=== PATIENT | male | born 1965 | race Caucasian/White ===

== ENCOUNTER 2023-04-19 08:08 | Inpatient (IN) | payer BC ==
[2023-04-19] MEDS ORDERED: Sodium Chloride 0.9% 10 ML Syringe FLUSH PRN (08:22)
[2023-04-19] MEDS ORDERED: Insulin Regular, Human 100 Units/ML 3 ML Vial SUBCUT ONE ×2 (08:23→10:06)
[2023-04-19] MEDS ORDERED: 50% Dextrose in Water 50 ML Syringe IVPUSH PRN ×5 (08:23→15:12)
[2023-04-19] MEDS ORDERED: Glucagon,Human Recombinant 1 MG Vial IM PRN ×5 (08:23→15:12)
[2023-04-19] MEDS ORDERED: Sodium Chloride 0.9% 500 ML IV SCH (08:30)
[2023-04-19 08:43] LABS: BASOPHILS ABSOLUTE AUTO 0.03 K/uL (0.00-0.20); BASOPHILS PERCENT AUTO 0.5 % (0.0-2.0); EOSINOPHILS ABSOLUTE AUTO 0.21 K/uL (0.00-0.50); EOSINOPHILS PERCENT AUTO 3.8 % (0.0-5.0); HEMATOCRIT 44.3 % (39.0-49.0); HEMOGLOBIN 15.5 g/dL (13.1-16.8); LYMPHOCYTES PERCENT AUTO 19.9 % (10.0-50.0); MEAN CORPUSCULAR HEMOGLOBIN 30.4 pg (28.2-33.3); MEAN CORPUSCULAR VOLUME 86.9 fL (84.0-98.0); MONOCYTES PERCENT AUTO 9.1 % (2.0-14.0); NEUTROPHILS ABSOLUTE AUTO 3.68 K/uL (1.40-7.00); NEUTROPHILS PERCENT AUTO 66.7 % (45.0-80.0); PLATELET COUNT,PLT 123 K/uL (150-350); RED CELL DISTRIBUTION WIDTH 12.8 % (11.2-14.1); WHITE BLOOD CELL COUNT,WBC 5.5 K/uL (4.0-10.2)
[2023-04-19 08:57] LABS: HEMOGLOBIN A1C 13.5 % (4.3-5.7)
[2023-04-19 09:16] LABS: ALBUMIN 3.6 g/dL (3.4-5.0); BILIRUBIN TOTAL 0.7 mg/dL (0.2-1.0); CALCIUM 8.9 mg/dL (8.5-10.1); CREATININE 1.15 mg/dL (0.51-1.17); EST CRCL DRUG DOSING (CG) 79.66 mL/min; MAGNESIUM 1.8 mg/dL (1.8-2.4); POTASSIUM,K 4.4 mmol/L (3.5-5.1); PROTEIN TOTAL,TP 7.5 g/dL (6.4-8.2)
[2023-04-19 09:21] LABS: ANION GAP 17.4 meq/L (7-15)
[2023-04-19 10:06] LABS: APPEARANCE,URINE CLEAR; BILIRUBIN,URINE NEGATIVE (NEGATIVE); COLOR,URINE LIGHT YELLOW; GLUCOSE,URINE 500 mg/dL (NEGATIVE); KETONES,URINE 40 mg/dL (NEGATIVE); LEUKOCYTE ESTERASE,URINE NEGATIVE (NEGATIVE); NITRITE,URINE NEGATIVE (NEGATIVE); OCCULT BLOOD,URINE NEGATIVE (NEGATIVE); PH,URINE 5.5 (5.0-9.0); PROTEIN,URINE NEGATIVE (NEGATIVE); UROBILINOGEN,URINE 0.2 E.U./dL (0.2-1.0)
[2023-04-19] MEDS ORDERED: metFORMIN 500 MG Tab PO ONE (10:07)
[2023-04-19] MEDS: Insulin Regular, Human 100 Units/ML 3 ML Vial SUBCUT SCH ×2 (11:38→17:47)
[2023-04-19 13:33] LABS: CHOLESTEROL HDL 38 mg/dL (40-60); CHOLESTEROL TOTAL 255 mg/dL (100-200); LIPASE 94 U/L (16-77)
[2023-04-19 14:06] LABS: TRIGLYCERIDES 1161 mg/dL (30-150)
[2023-04-19] MEDS ORDERED: Iopamidol 612 MG/ML 100 ML Bottle IVPUSH ONE (14:23)
[2023-04-19] MEDS ORDERED: Iopamidol 612 MG/ML 100 ML Bottle ONE (14:26)
[2023-04-19] MEDS: Pregabalin 75 MG Cap PO SCH (17:46)
[2023-04-19] MEDS ORDERED: metFORMIN 500 MG Tab.ER PO SCH (18:00)
[2023-04-19] MEDS: Fenofibrate,Micronized 67 MG Cap PO SCH (18:04)
[2023-04-19] MEDS ORDERED: Insulin Glarg,Human.Rec.Analog 100 Unit/ML 10 ML Vial SUBCUT SCH (20:00)
[2023-04-19] MEDS: Insulin Glarg,Human.Rec.Analog 100 Unit/ML 10 ML Vial SUBCUT SCH (20:12)
[2023-04-19] MEDS: traZODone 50 MG Tab PO PRN (20:22)
[2023-04-20] MEDS: Ascorbic Acid 500 MG Tab PO SCH (07:18)
[2023-04-20] MEDS: Lisinopril 10 MG Tab PO SCH (07:18)
[2023-04-20] MEDS: Venlafaxine 75 MG Cap.ER PO SCH (07:18)
[2023-04-20] MEDS: Fenofibrate,Micronized 67 MG Cap PO SCH (07:19)
[2023-04-20] MEDS: Propranolol 60 MG Cap.ER PO SCH (07:19)
[2023-04-20] MEDS: Levothyroxine 88 MCG Tab PO SCH (07:19)
[2023-04-20] MEDS: atorvaSTATin 20 MG Tab PO SCH (07:19)
[2023-04-20] MEDS: Venlafaxine 37.5 MG Cap.ER PO SCH (07:20)
[2023-04-20] MEDS: Pregabalin 75 MG Cap PO SCH ×2 (07:20→17:30)
[2023-04-20] MEDS: Insulin Regular, Human 100 Units/ML 3 ML Vial SUBCUT SCH ×3 (07:21→17:25)
[2023-04-20 07:29] LABS: BASOPHILS ABSOLUTE AUTO 0.03 K/uL (0.00-0.20); BASOPHILS PERCENT AUTO 0.5 % (0.0-2.0); EOSINOPHILS ABSOLUTE AUTO 0.25 K/uL (0.00-0.50); EOSINOPHILS PERCENT AUTO 4.3 % (0.0-5.0); HEMATOCRIT 45.9 % (39.0-49.0); HEMOGLOBIN 15.8 g/dL (13.1-16.8); LYMPHOCYTES ABSOLUTE AUTO 1.43 K/uL (0.50-3.50); LYMPHOCYTES PERCENT AUTO 24.6 % (10.0-50.0); MEAN CORPUSCULAR HEMOGLOBIN 30.2 pg (28.2-33.3); MEAN CORPUSCULAR HGB CONC 34.4 g/dL (31.7-36.0); MEAN CORPUSCULAR VOLUME 87.8 fL (84.0-98.0); MONOCYTES ABSOLUTE AUTO 0.43 K/uL (0.00-1.00); MONOCYTES PERCENT AUTO 7.4 % (2.0-14.0); NEUTROPHILS ABSOLUTE AUTO 3.68 K/uL (1.40-7.00); NEUTROPHILS PERCENT AUTO 63.2 % (45.0-80.0); PLATELET COUNT,PLT 124 K/uL (150-350); RED BLOOD CELL COUNT 5.23 M/uL (4.33-5.41); RED CELL DISTRIBUTION WIDTH 13.1 % (11.2-14.1); WHITE BLOOD CELL COUNT,WBC 5.8 K/uL (4.0-10.2)
[2023-04-20 07:57] LABS: ALANINE AMINOTRANSFERASE,ALT 63 U/L (12-78); ALBUMIN 3.6 g/dL (3.4-5.0); ANION GAP 8.6 meq/L (7-15); ASPARTATE AMNIOTRANSFERASE,AST 70 U/L (15-37); BILIRUBIN TOTAL 0.8 mg/dL (0.2-1.0); BLOOD UREA NITROGEN,BUN 17 mg/dL (7-18); CARBON DIOXIDE,CO2 29.4 mmol/L (21.0-32.0); CHLORIDE,CL 100 mmol/L (98-107); CHOLESTEROL HDL 45 mg/dL (40-60); CHOLESTEROL TOTAL 244 mg/dL (100-200); CREATININE 1.15 mg/dL (0.51-1.17); EST CRCL DRUG DOSING (CG) 79.66 mL/min; ESTIMATED GFR 75 mL/min (>=60); GLUCOSE RANDOM 273 mg/dL (70-99); LIPASE 68 U/L (16-77); POTASSIUM,K 4.2 mmol/L (3.5-5.1); PROTEIN TOTAL,TP 7.5 g/dL (6.4-8.2); SODIUM,NA 138 mmol/L (136-145); TRIGLYCERIDES 636 mg/dL (30-150)
[2023-04-20] MEDS ORDERED: Glimepiride 2 MG Tab PO SCH (08:00)
[2023-04-20 09:14] LABS: ALKALINE PHOSPHATASE 67 IU/L (46-116)
[2023-04-20] MEDS: traZODone 50 MG Tab PO PRN (21:22)
[2023-04-20] MEDS: Insulin Glarg,Human.Rec.Analog 100 Unit/ML 10 ML Vial SUBCUT SCH (21:26)
[2023-04-21] MEDS: Ascorbic Acid 500 MG Tab PO SCH (07:35)
[2023-04-21] MEDS: Insulin Regular, Human 100 Units/ML 3 ML Vial SUBCUT SCH (07:36)
[2023-04-21] MEDS: Fenofibrate,Micronized 67 MG Cap PO SCH (07:36)
[2023-04-21] MEDS: Pregabalin 75 MG Cap PO SCH (07:43)
[2023-04-21] MEDS: Levothyroxine 88 MCG Tab PO SCH (07:43)
[2023-04-21] MEDS: Venlafaxine 37.5 MG Cap.ER PO SCH (07:44)
[2023-04-21] MEDS: atorvaSTATin 20 MG Tab PO SCH (07:44)
[2023-04-21] MEDS: Venlafaxine 75 MG Cap.ER PO SCH (07:45)
[2023-04-21] MEDS: Propranolol 60 MG Cap.ER PO SCH (07:45)
[2023-04-21] MEDS: Lisinopril 10 MG Tab PO SCH (07:45)
[2023-04-21 07:59] LABS: CHOLESTEROL HDL 45 mg/dL (40-60); CHOLESTEROL TOTAL 228 mg/dL (100-200); LIPASE 55 U/L (16-77); TRIGLYCERIDES 488 mg/dL (30-150)
== END 2023-04-21 10:30 | disposition home or self-care (01) | DRG 282 ==
LOC: LL.ED 08:08 → OBSVTOIN 09:49 → LL.MS 09:49
PROVIDERS: ADMIT Emergency Medicine; ATTEND Emergency Medicine
DX: K85.80 Other acute pancreatitis without necrosis or infection (principal); E11.65 Type 2 diabetes mellitus with hyperglycemia; I10 Essential (primary) hypertension; F41.9 Anxiety disorder, unspecified; F32.A Depression, unspecified; E03.9 Hypothyroidism, unspecified; Z79.890 Hormone replacement therapy; Z79.899 Other long term (current) drug therapy; Z79.4 Long term (current) use of insulin; Z98.890 Other specified postprocedural states; Z88.8 Allergy status to other drugs, medicaments and biological substances
CPT/HCPCS: 36415; 74177; 80053; 80061; 81003; 82009; 82947; 83036; 83605; 83690; 83735; 84443; 85025; 96360; 96361; 99285-25; A9270-GY; G0378; J1815-GY; J3490; J7040; Q9967